=== PATIENT | female | born 1985 | race Caucasian/White ===

== ENCOUNTER 2020-04-20 08:32 | Day surgery (SDC) | payer MEDICAID ==
[2020-04-17 12:39] LABS: APPEARANCE,URINE SLIGHTLY-CLOUDY; BILIRUBIN,URINE NEGATIVE (NEGATIVE); COLOR,URINE YELLOW; GLUCOSE, URINE NEGATIVE (NEGATIVE); KETONES,URINE NEGATIVE (NEGATIVE); LEUKOCYTE ESTERASE,URINE LARGE (NEGATIVE); NITRITE,URINE NEGATIVE (NEGATIVE); PROTEIN,URINE NEGATIVE (NEGATIVE); URINE SPECIFIC GRAVITY 1.009; UROBILINOGEN,URINE NEGATIVE mg/dL (<2.0)
[2020-04-17 12:40] LABS: HEMATOCRIT 40.6 % (36.0-47.0); HEMOGLOBIN 14.2 g/dL (12.0-15.5); MEAN CORPUSCULAR HEMOGLOBIN 31.6 pg (27.0-33.4); MEAN CORPUSCULAR VOLUME 90 fl (80-97); PLATELET COUNT 289 10^3/uL (150-450); RED BLOOD COUNT 4.49 10^6/uL (3.72-5.28); RED CELL DISTRIBUTION WIDTH 13.1 % (11.5-14.0); WHITE BLOOD COUNT 8.7 10^3/uL (4.0-10.5)
[~2020-04-20 08:32] MED LIST: LACTATED RINGERS 1000 ML IV PRN; LIDOCAINE 0.5% INJ-PF (5 MG/ML) 50 ML SDV SUBCUT PRN
[2020-04-20] MEDS ORDERED: MIDAZOLAM 2 MG/2 ML INJ ONE (09:15)
[2020-04-20] MEDS ORDERED: SUGAMMADEX SODIUM 200 MG/2 ML SDV IV ONE (09:15)
[2020-04-20] MEDS ORDERED: ONDANSETRON HCL INJ/PF 4 MG/2 ML SDV ONE (09:15)
[2020-04-20] MEDS ORDERED: DEXAMETHASONE SOD PHOSPHATE INJ 4 MG/1 ML VIAL ONE (09:15)
[2020-04-20] MEDS ORDERED: PROPOFOL INJ 200 MG/20 ML VIAL IV ONE (09:15)
[2020-04-20] MEDS ORDERED: FENTANYL CITRATE INJ/PF 100 MCG/2 ML AMPUL ONE ×2 (09:15→11:20)
[2020-04-20] MEDS ORDERED: BUPIVACAINE HCL 0.25 % INJ/PF (2.5 MG/1 ML) 30 ML VIAL ONE (09:43)
[2020-04-20] MEDS ORDERED: FENTANYL CITRATE INJ/PF 100 MCG/2 ML AMPUL IV PRN ×3 (10:43)
[2020-04-20] MEDS ORDERED: PROMETHAZINE HCL INJ 25 MG/1 ML VIAL IV PRN ×2 (10:43)
[2020-04-20] MEDS ORDERED: MORPHINE SULFATE 10 MG/ML INJ IV PRN (10:43)
[2020-04-20] MEDS ORDERED: MEPERIDINE HCL/PF INJ 25 MG/1 ML DISP.SYRIN IV PRN (10:43)
[2020-04-20] MEDS ORDERED: DIPHENHYDRAMINE HCL 50 MG/ML VIAL IV PRN (10:43)
[2020-04-20] MEDS ORDERED: OXYCODONE-ACETAMINOPHEN 5-325 MG TABLET PO PRN ×2 (10:43)
--- NOTE | 2020-04-20 10:50 | Operative Report ---
Operative Report DATE OF SURGERY: 04/20/20 PREOPERATIVE DIAGNOSIS: Desire for sterilization POSTOPERATIVE DIAGNOSIS: Same OPERATION: Bilateral tubal occlusion Filshie clips SURGEON: ARJUN REYNOLDS ANESTHESIA: Spinal TISSUE REMOVED OR ALTERED: None ESTIMATED BLOOD LOSS: Negligible PROCEDURE: Patient placed in dorsal lithotomy position prepped draped sterile fashion. Speculum was placed cervix was visualized and grasped with a single-tooth tenaculum and Hulka tenaculum and was placed in single-tooth tenaculum was removed speculum is removed and the bladder drained with a catheter. Return to the abdomen where a subumbilical incision was made trocar was introduced with insufflation of the abdomen. Laparoscope was placed and visualization of the pelvis which appeared to be normal. Right fallopian tube was identified to the fimbria and a Filshie clip was placed on the proximal portion. The procedure was repeated on the left again noted to be identified to the fimbria are prior to and after banding. No other overt abnormalities were noted laparoscope was removed them deflated and the trocar sleeve was removed. Incision was closed with 0 Vicryl for fascia and 4-0 Vicryl subcutaneous for the skin. The Hulka tenaculum was removed and hemostasis was noted and procedure terminated she was taken to recovery room in good condition
[2020-04-20] MEDS ORDERED: OXYCODONE-ACETAMINOPHEN 5-325 MG TABLET ONE (12:19)
[2020-04-20] MEDS ORDERED: ROCURONIUM BROMIDE INJ 50 MG/5 ML VIAL IV ONE (12:36)
[2020-04-20] MEDS ORDERED: SUCCINYLCHOLINE CHLORIDE INJ 200 MG/10 ML VIAL ONE (12:36)
[2020-04-20 16:11] VITALS: BP 108/77
== END 2020-04-20 13:49 | disposition home or self-care (01) ==
LOC: OROUT 08:32
PROVIDERS: ATTEND Obstetrics & Gynecology Gynecology
DX: Z30.2 Encounter for sterilization (principal); Z03.818 Encounter for observation for suspected exposure to other biological agents ruled out; F17.210 Nicotine dependence, cigarettes, uncomplicated
CPT/HCPCS: 36415; 85027; 87635; 81005; 81025; 58671; J2250; J1100; J3010; J2405; J3490 ×2; J2704; C9803; 851; J0330